=== PATIENT | male | born 1965 | race Caucasian/White ===

== ENCOUNTER 2019-11-21 12:26 | Inpatient (IN) | payer OTHER ==
--- NOTE | 2019-11-21 12:33 | BHS.RME ---
Substance Use & Tx History - Substance Use History Alcohol Substance amount: 5-6 beers Frequency of use: Daily Substance route: Oral Date of Last Use: 11/21/19 Heroin Substance amount: 3 bags Frequency of use: Daily Substance route: Inhalation (ex: sniffing or snorting) Date of Last Use: 11/20/19 Cocaine-Crack Substance amount: 3-4 bags Frequency of use: Daily Substance route: Smoking Date of Last Use: 11/20/19 Nicotine Substance amount: 1 pack Frequency of use: Daily Substance route: Smoking Date of Last Use: 11/21/19 Physical/Psych/Mental Status - Behavior General Behavior: Increased activity (restlessness, agitation) Eye Contact: Normal - Cooperativeness Cooperativeness: Cooperative - Thinking Thought Processes: Tight, Logical, Goal Directed - Physical Health Problems Is patient presently having any pain?: No Does patient presently have any injuries (include location): No Does patient currently have a fever: No Is patient : No CIWA Nausea/Vomitin-No Nausea/No Vomiting Muscle Tremors: 2 Anxiety: 3 Agitation: 3 Paroxysmal Sweats: No Perspiration Orientation: 1-Uncertain about Date Tacttile Disturbances: 0-None Auditory Disturbances: 0-None Visual Disturbances: 0-None Headache: 0-None Present CIWA-Ar Total Score: 9
--- NOTE | 2019-11-21 13:23 | HP ---
CIWA Score Nausea/Vomitin-No Nausea/No Vomiting Muscle Tremors: 2 Anxiety: 3 Agitation: 3 Paroxysmal Sweats: No Perspiration Orientation: 1-Uncertain about Date Tacttile Disturbances: 0-None Auditory Disturbances: 0-None Visual Disturbances: 0-None Headache: 0-None Present CIWA-Ar Total Score: 9 - Admission Criteria OASAS Guidelines: Admission for Medically Managed Detox: Requires at least one of the followin. CIWA greater than 12 2. Seizures within the past 24 hours 3. Delirium tremens within the past 24 hours 4. Hallucinations within the past 24 hours 5. Acute intervention needed for co occurring medical disorder 6. Acute intervention needed for co occurring psychiatric disorder 7. Severe withdrawal that cannot be handled at a lower level of care (continued vomiting, continued diarrhea, abnormal vital signs) requiring intravenous medication and/or fluids 8. Admitting History and Physical - Admission History of Present Illness: Mr. Min Lehman presents today(first visit) at [facility] for detox from Alcohol, heroin and crack. PMH: 2 PINGED NERVES, 3 BULGIND DISC PSH: Rt inguinal hernial repair 22y ago PSYCH: Bipolar, last med a year ago SOCIAL: Rents a room LEGAL: nONE Substance Use & Tx History - Substance Use History Alcohol Substance amount: 5-6 beers Frequency of use: Daily Substance route: Oral Date of Last Use: 11/21/19 First use: Age12. seizure -, blackout -, eye oral and maxillofacial surgery resident + Heroin Substance amount: 3 bags Frequency of use: Daily Substance route: Inhalation (ex: sniffing or snorting) Date of Last Use: 11/20/19 First use: Age 16, OD + , LST TIME HAD NARCAN AT HOME WAS AT AGE 18 Cocaine-Crack Substance amount: 3-4 bags Frequency of use: Daily Substance route: Smoking Date of Last Use: 11/20/19 First use: Age 16 Nicotine Substance amount: 1 pack Frequency of use: Daily Substance route: Smoking Date of Last Use: 11/21/19 First use: 12 meets admission criteria given current level of intoxication. High risk relapse. History Source: Patient Limitations to Obtaining History: No Limitations - Past Medical History Gastrointestinal: Yes: Peptic Ulcer Disease (Patient says he has gastritis and takes Zantac) Psych: Yes: Anxiety, Bipolar (Was previously on psych meds. Last dose was about a year ago), Depression Musculoskeletal: Yes: Chronic low back pain (Has 2 pinched nerves and three bulge disc. Was previously on Procaset) - Past Surgical History Past Surgical History: Yes: Hernia Repair (Rt hernial repair 22y ago. Says he now has Lt. inguinal hernia and needs surgery) - Smoking History Smoking history: Current every day smoker Have you smoked in the past 12 months: Yes Aproximately how many cigarettes per day: 20 - Alcohol/Substance Use Hx Alcohol Use: Yes Admission ROS [facility] - HPI Exam Limitations: No Limitations - Ebola screening Have you traveled outside of the country in the last 21 days: No Have you been sick,other than usual withdrawal symptoms: No Do you have a fever: No - Review of Systems Constitutional: No Symptoms Reported EENT: reports: No Symptoms Reported : reports: No Symptoms Reported Musculoskeletal: reports: Back Pain (Chronic and radiates to Lt ant/medial post thigh) Integumentary: reports: No Symptoms Reported Neuro: reports: No Symptoms reported Endocrine: reports: No Symptoms Reported Hematology: reports: No Symptoms Reported Psychiatric: reports: Anxious Patient History - Smoking Cessation Smoking history: Current every day smoker Have you smoked in the past 12 months: Yes Aproximately how many cigarettes per day: 20 Hx Chewing Tobacco Use: No Initiated information on smoking cessation: Yes 'Breaking Loose' booklet given: 11/21/19 Admission Physical Exam [facility] - Physical General Appearance: Yes: Within Normal Limits, No Apparent Distress, Thin HEENTM: Yes: Within Normal Limits, EOMI, Hearing grossly Normal, Normal ENT Inspection, Normocephalic, Normal Voice, JOLLY Respiratory: Yes: Within Normal Limits, Chest Non-Tender, Lungs Clear, Normal Breath Sounds, No Respiratory Distress, No Accessory Muscle Use Neck: Yes: Within Normal Limits, No masses,lesions,Nodules, Trachea in good position Cardiology: Yes: Within Normal Limits, Regular Rhythm, Regular Rate, Murmur, Other (2 stents placed over 10 yrs ago) Abdominal: Yes: Within Normal Limits, Normal Bowel Sounds, Non Tender, Flat Genitourinary: Yes: Within Normal Limits Back: Yes: Decreased Range of Motion (Has 2 pinched nerves and 3 bulging disc. Walks with a CANE) Musculoskeletal: Yes: Gait Steady, Back pain (WALKS WITH A CANE, 2 PINCHED NERVES AND 3 BULGING DISCS) Extremities: Yes: Within Normal Limits, Normal Capillary Refill, Normal Inspection, Normal Range of Motion, Non-Tender Neurological: Yes: Fully Oriented, Alert Integumentary: Yes: Within Normal Limits, Normal Color - Diagnostic (1) Alcohol dependence with withdrawal, uncomplicated Current Visit: Yes Status: Acute (2) Opioid dependence on agonist therapy Current Visit: Yes Status: Acute (3) Cocaine dependence Current Visit: Yes Status: Acute Qualifiers: Substance use status: uncomplicated Qualified Code(s): F14.20 - Cocaine dependence, uncomplicated (4) Nicotine dependence Current Visit: Yes Status: Acute Qualifiers: Nicotine product type: cigarettes Substance use status: uncomplicated Qualified Code(s): F17.210 - Nicotine dependence, cigarettes, uncomplicated (5) Degenerative lumbar disc Current Visit: Yes Status: Acute (6) Bipolar 1 disorder Current Visit: Yes Status: Chronic Cleared for Admission S - Detox or Rehab [facility] Level of Care: Medically Managed Detox Regimen/Protocol: Librium Screened but not Admitted - Documentation of Visit Screened but not Admitted: Yes Breathalyzer - Breathalyzer Breathalyzer: 0.005 Urine Drug Screen - Results Urine drug screen results: TAYLOR-Cocaine, FEN-Fentanyl, MOP-Opiates, MTD-Methadone Inpatient Rehab Admission - Rehab Decision to Admit Inpatient rehab admission?: No
[2019-11-21] MEDS ORDERED: chlordiazePOXIDE HCL 25 MG CAPSULE PO PRN (14:25)
[2019-11-21] MEDS ORDERED: ONDANSETRON *ODT* 4 MG TABLET SL PRN (14:25)
[2019-11-21] MEDS ORDERED: BISMUTH SUBSALICYLATE 262 MG/15 ML BTL PO PRN (14:25)
[2019-11-21] MEDS ORDERED: METHOCARBAMOL 500 MG TABLET PO PRN (14:25)
[2019-11-21] MEDS ORDERED: ACETAMINOPHEN 325 MG TABLET (FP) PO PRN ×2 (14:25)
[2019-11-21] MEDS ORDERED: MAGNESIUM CITRATE 300 ML BOTTLE PO PRN (14:25)
[2019-11-21] MEDS ORDERED: NICOTINE POLACRILEX 2 MG GUM BUC PRN (14:25)
[2019-11-21] MEDS ORDERED: MAGNESIUM HYDROX 2400MG/30ML ORAL SUSPENSION 30 ML CUP PO PRN (14:25)
[2019-11-21] MEDS ORDERED: MAG HYDROX/AL HYDROX/SIMETH 30 ML UNIT-DOSE CUP PO PRN (14:25)
[2019-11-21] MEDS ORDERED: IBUPROFEN 400 MG TABLET (FP) PO PRN (14:25)
[2019-11-21] MEDS ORDERED: MENTHOL/PHENOL 1 EACH UD MM PRN (14:25)
[2019-11-21 14:52] VITALS: BMI 21.4
[2019-11-21] MEDS ORDERED: hydrOXYzine PAMOATE 25 MG CAPSULE (FP) PO PRN (15:08)
[2019-11-21] MEDS: PRENATAL VITAMINS W/ FOLIC ACID TABLET (FP) PO SCH (15:53)
[2019-11-21] MEDS: NICOTINE 21 MG/24 HOURS TOPICAL PATCH TD SCH (15:53)
--- NOTE | 2019-11-21 15:58 | PN ---
Teaching Attending Note Name of Resident: Zabrina Pugh ATTENDING PHYSICIAN STATEMENT I saw and evaluated the patient. I reviewed the resident's note and discussed the case with the resident. I agree with the resident's findings and plan as documented. SUBJECTIVE: OBJECTIVE: ASSESSMENT AND PLAN:
[2019-11-21 16:52] LABS: HEMATOCRIT 41.4 % (35.4-49); HEMOGLOBIN 13.6 GM/dL (11.7-16.9); MCH 29.3 pg (25.7-33.7); MCHC 32.9 g/dl (32.0-35.9); MEAN CELL VOLUME 89.2 fl (80-96); MEAN PLT VOLUME 9.4 fl (7.5-11.1); PLATELET COUNT 163 K/MM3 (134-434); RBC 4.64 M/mm3 (4.00-5.60); RDW 15.7 % (11.9-15.9); WHITE BLOOD COUNT 5.8 K/mm3 (4.0-10.0)
[2019-11-21 17:03] LABS: ALBUMIN 3.4 g/dl (3.4-5.0); BILIRUBIN,TOTAL 0.2 mg/dL (0.2-1); BLOOD UREA NITROGEN 18.8 mg/dL (7-18); CALCIUM 8.4 mg/dL (8.5-10.1); POTASSIUM 3.9 mmol/L (3.5-5.1); TOT PROT 6.5 g/dl (6.4-8.2)
--- NOTE | 2019-11-21 17:20 | CONSULT ---
[facility] Psychiatric Consult - Data Date of interview: 11/21/19 Admission source: [facility] Identifying data: First visit to [facility] and admission to [address] [place] [address] for this 53 y/o male self-referred for detoxification treatment. JEANIE issues : alcohol, heroin, cocaine, nicotine. Patient is single, a father of three, domiciled (lives alone), unemployed and supported on SSI benefits. Substance Abuse History: Discussed with the patient. JEANIE profile as follows : Substance Use History. Alcohol. Substance amount: 5-6 beers. Frequency of use: Daily. Substance route: Oral. Date of Last Use: 11/21/19. First use: Age12. seizure -, blackout -, eye can top setter +. Heroin. Substance amount: 3 bags. Frequency of use: Daily. Substance route: Inhalation (ex: sniffing or snorting). Date of Last Use: 11/20/19. First use: Age 16, OD + , LST TIME HAD NARCAN AT HOME WAS AT AGE 18. Cocaine-Crack. Substance amount: 3-4 bags. Frequency of use: Daily. Substance route: Smoking. Date of Last Use: 11/20/19. First use: Age 16. Nicotine. Substance amount: 1 pack. Frequency of use: Daily. Substance route: Smoking. Date of Last Use: 11/21/19. First use: 12 Medical History: Medical profile is remarkable for peptic ulcer disease, gastritis, chronic lumbar pain (2 pinched nerves + three bulge discs), antecedent of right inguinal herniorraphy and currently with left inguinal hernia (self-report). Patient uses a cane for ambulation. Psychiatric History: Patient admits to a distant history of psychiatric hospitalizations ([facility] + [facility]). Reportedly diagnosed with Bipolar Disorder. Mr Lehman indicates past treatment with duloxetine + aripriprazole + alprazolam + zolpidem. Not taken " for more than a year." Patient used to get his OPD services at [facility]. Appointments not kept for several months. Patient declares a history of two suicide attempts, more than 20 years ago, via overdose with medications + self- mutilation (wrist-cutting). Physical/Sexual Abuse/Trauma History: Patient denies. Additional Comment: Urine drug screen results: TAYLOR-Cocaine, FEN-Fentanyl, MOP- Opiates, MTD-Methadone. Noted. Mental Status Exam - Mental Status Exam Alert and Oriented to: Time, Place, Person Cognitive Function: Good Patient Appearance: Unkempt, Disheveled Mood: Nervous, Withdrawn, Anxious Affect: Mood Congruent, Constricted Patient Behavior: Fatigued, Appropriate, Cooperative Speech Pattern: Clear, Appropriate Voice Loudness: Normal Thought Process: Intact, Goal Oriented Thought Disorder: Not Present Hallucinations: Denies Suicidal Ideation: Denies Homicidal Ideation: Denies Insight/Judgement: Poor Sleep: Poorly, Difficulty falling asleep Appetite: Good Gait/Station: Other (uses a cane for ambulation) Psychiatric Findings - Problem List ([place] 1, 2,3) (1) Alcohol dependence with withdrawal, uncomplicated Current Visit: Yes Status: Acute (2) Opioid use disorder Current Visit: Yes Status: Chronic (3) Cocaine dependence Current Visit: Yes Status: Chronic Qualifiers: Substance use status: uncomplicated Qualified Code(s): F14.20 - Cocaine dependence, uncomplicated (4) Nicotine dependence Current Visit: Yes Status: Chronic Qualifiers: Nicotine product type: cigarettes Substance use status: uncomplicated Qualified Code(s): F17.210 - Nicotine dependence, cigarettes, uncomplicated (5) Substance induced mood disorder Current Visit: Yes Status: Chronic (6) History of bipolar disorder Current Visit: Yes Status: Chronic (7) Insomnia Current Visit: Yes Status: Chronic (8) Non-compliance Current Visit: Yes Status: Chronic - Initial Treatment Plan Initial Treatment Plan: Psychoeducation. Sleep hygiene. Support. Detoxification initiated. Insomnia is addressed with melatonin at bedtime. Patient has given his informed consent for this plan of care. Observation.
[2019-11-21] MEDS ORDERED: METHADONE HCL 10 MG TABLET (FOR DETOX USE ONLY) PO ONE (17:28)
[2019-11-21] MEDS ORDERED: cloNIDine HCL 0.1 MG TABLET PO PRN (17:28)
[2019-11-21] MEDS ORDERED: hydrOXYzine PAMOATE 25 MG CAPSULE (FP) PO SCH (18:00)
[2019-11-21] MEDS: chlordiazePOXIDE HCL 25 MG CAPSULE PO SCH ×2 (18:08→22:27)
[2019-11-21] MEDS: MELATONIN 5 MG TABLETS PO SCH (22:27)
[2019-11-21] MEDS: THIAMINE HCL 100 MG TABLET (FP) PO SCH (22:27)
[2019-11-22] MEDS: chlordiazePOXIDE HCL 25 MG CAPSULE PO SCH ×4 (05:54→22:47)
[2019-11-22] MEDS ORDERED: METHADONE (DETOX) 20 MG, METHADONE (DETOX) 5 MG PO ONE (10:00)
[2019-11-22] MEDS: METHADONE HCL 40 MG DISPERSABLE TABLET PO SCH (10:29)
[2019-11-22] MEDS: PRENATAL VITAMINS W/ FOLIC ACID TABLET (FP) PO SCH (10:29)
[2019-11-22] MEDS: NICOTINE 21 MG/24 HOURS TOPICAL PATCH TD SCH (10:29)
--- NOTE | 2019-11-22 10:55 | PN ---
S CIWA - CIWA Score Nausea/Vomitin-No Nausea/No Vomiting Muscle Tremors: 2 Anxiety: 2 Agitation: 2 Paroxysmal Sweats: 2 Orientation: 0-Oriented Tacttile Disturbances: 0-None Auditory Disturbances: 0-None Visual Disturbances: 0-None Headache: 0-None Present CIWA-Ar Total Score: 8 BHS Progress Note (SOAP) Subjective: sweats mild shakes interrupted sleep body aches Objective: 11/22/19 10:54 Vital Signs Temperature 97.3 F L 11/22/19 08:45 Pulse Rate 54 L 11/22/19 08:45 Respiratory Rate 16 11/22/19 08:45 Blood Pressure 116/70 11/22/19 08:45 O2 Sat by Pulse Oximetry (%) 98 11/22/19 05:21 Laboratory Tests 11/21/19 11/21/19 11/21/19 14:15 14:15 14:15 WBC 5.8 RBC 4.64 Hgb 13.6 Hct 41.4 MCV 89.2 MCH 29.3 MCHC 32.9 RDW 15.7 Plt Count 163 MPV 9.4 Sodium 142 Potassium 3.9 Chloride 108 H Carbon Dioxide 28 Anion Gap 5 L BUN 18.8 H Creatinine 1.0 Est GFR (CKD-EPI)AfAm 99.15 Est GFR (CKD-EPI)NonAf 85.55 Random Glucose 129 H Calcium 8.4 L Total Bilirubin 0.2 AST 17 ALT 22 Alkaline Phosphatase 60 Total Protein 6.5 Albumin 3.4 Syphilis Serology Non-reactive labs noted aaox3 lying in bed no acute distress Assessment: 11/22/19 10:54 withdrawals Plan: continue detox increase fluids
[2019-11-22] MEDS: THIAMINE HCL 100 MG TABLET (FP) PO SCH (22:47)
[2019-11-22] MEDS: MELATONIN 5 MG TABLETS PO SCH (23:29)
[2019-11-23] MEDS: METHADONE HCL 40 MG DISPERSABLE TABLET PO SCH (05:33)
[2019-11-23] MEDS: chlordiazePOXIDE HCL 25 MG CAPSULE PO SCH ×4 (05:33→22:02)
[2019-11-23] MEDS ORDERED: ACETAMINOPHEN 325 MG TABLET (FP) PO PRN (09:00)
--- NOTE | 2019-11-23 09:06 | PN ---
S CIWA - CIWA Score Nausea/Vomitin-No Nausea/No Vomiting Muscle Tremors: 2 Anxiety: 1-Mildly Anxious Agitation: 2 Paroxysmal Sweats: 1-Minimal Palms Moist Orientation: 0-Oriented Tacttile Disturbances: 0-None Auditory Disturbances: 0-None Visual Disturbances: 0-None Headache: 0-None Present CIWA-Ar Total Score: 6 BHS Progress Note (SOAP) Subjective: chronic lower back pain sweats interrupted sleep body aches Objective: 11/23/19 09:06 Vital Signs Temperature 97.5 F L 11/23/19 05:23 Pulse Rate 55 L 11/23/19 05:23 Respiratory Rate 16 11/23/19 05:23 Blood Pressure 106/65 11/23/19 05:23 O2 Sat by Pulse Oximetry (%) 98 11/23/19 05:23 Laboratory Tests 11/21/19 11/21/19 11/21/19 14:15 14:15 14:15 WBC 5.8 RBC 4.64 Hgb 13.6 Hct 41.4 MCV 89.2 MCH 29.3 MCHC 32.9 RDW 15.7 Plt Count 163 MPV 9.4 Sodium 142 Potassium 3.9 Chloride 108 H Carbon Dioxide 28 Anion Gap 5 L BUN 18.8 H Creatinine 1.0 Est GFR (CKD-EPI)AfAm 99.15 Est GFR (CKD-EPI)NonAf 85.55 Random Glucose 129 H Calcium 8.4 L Total Bilirubin 0.2 AST 17 ALT 22 Alkaline Phosphatase 60 Total Protein 6.5 Albumin 3.4 Syphilis Serology Non-reactive repeated labs pending aaox3 ambulating well with cane no acute distress Assessment: 11/23/19 09:07 withdrawals Plan: continue detox increase fluids lidocaine patch tylenol 1000mg q6hr for pain prn roboxin prn
[2019-11-23] MEDS ORDERED: METHADONE HCL 10 MG TABLET (FOR DETOX USE ONLY) PO ONE (10:00)
[2019-11-23] MEDS: LIDOCAINE 5% TOPICAL PATCH TP SCH (10:30)
[2019-11-23] MEDS: NICOTINE 21 MG/24 HOURS TOPICAL PATCH TD SCH (10:30)
[2019-11-23] MEDS: PRENATAL VITAMINS W/ FOLIC ACID TABLET (FP) PO SCH (10:31)
[2019-11-23] MEDS: ACETAMINOPHEN 500 MG TABLET (FP) PO PRN (11:20)
[2019-11-23 11:39] LABS: BLOOD UREA NITROGEN 19.8 mg/dL (7-18); CALCIUM 8.3 mg/dL (8.5-10.1)
[2019-11-23 11:40] LABS: ALBUMIN 2.9 g/dl (3.4-5.0); BILIRUBIN,TOTAL 0.4 mg/dL (0.2-1); CREATININE 0.8 mg/dL (0.55-1.3); TOT PROT 5.6 g/dl (6.4-8.2)
[2019-11-23] MEDS: THIAMINE HCL 100 MG TABLET (FP) PO SCH (22:02)
[2019-11-23] MEDS: LIDOCAINE PATCH REMOVAL MC SCH (22:02)
[2019-11-23] MEDS: MELATONIN 5 MG TABLETS PO SCH (22:02)
[2019-11-24] MEDS ORDERED: chlordiazePOXIDE HCL 10 MG CAPSULE PO PRN
[2019-11-24] MEDS: chlordiazePOXIDE HCL 10 MG CAPSULE PO SCH ×4 (05:27→22:31)
[2019-11-24] MEDS: METHADONE HCL 40 MG DISPERSABLE TABLET PO SCH (05:27)
[2019-11-24] MEDS ORDERED: METHADONE (DETOX) 10 MG, METHADONE (DETOX) 5 MG PO ONE (10:00)
[2019-11-24] MEDS: PRENATAL VITAMINS W/ FOLIC ACID TABLET (FP) PO SCH (10:32)
[2019-11-24] MEDS: NICOTINE 21 MG/24 HOURS TOPICAL PATCH TD SCH (10:32)
[2019-11-24] MEDS: LIDOCAINE 5% TOPICAL PATCH TP SCH (10:32)
--- NOTE | 2019-11-24 13:30 | PN ---
[facility] CIWA - CIWA Score Nausea/Vomitin-No Nausea/No Vomiting Muscle Tremors: 2 Anxiety: 2 Agitation: 1-Slight > Activity Paroxysmal Sweats: 2 Orientation: 0-Oriented Tacttile Disturbances: 0-None Auditory Disturbances: 0-None Visual Disturbances: 0-None Headache: 0-None Present CIWA-Ar Total Score: 7 BHS Progress Note (SOAP) Subjective: Complaints of anxiety,tremors, sweats and mild agitation. Objective: 11/24/19 13:28 Vital Signs 11/24/19 11/24/19 08:50 13:05 Temperature 97.3 F L 97.3 F L Pulse Rate 55 L 59 L Respiratory 16 18 Rate Blood Pressure 113/72 102/69 O2 Sat by Pulse 99 Oximetry (%) Laboratory Last Values WBC 5.8 K/mm3 (4.0-10.0) 11/21/19 14:15 RBC 4.64 M/mm3 (4.00-5.60) 11/21/19 14:15 Hgb 13.6 GM/dL (11.7-16.9) 11/21/19 14:15 Hct 41.4 % (35.4-49) 11/21/19 14:15 MCV 89.2 fl (80-96) 11/21/19 14:15 MCH 29.3 pg (25.7-33.7) 11/21/19 14:15 MCHC 32.9 g/dl (32.0-35.9) 11/21/19 14:15 RDW 15.7 % (11.9-15.9) 11/21/19 14:15 Plt Count 163 K/MM3 (134-434) 11/21/19 14:15 MPV 9.4 fl (7.5-11.1) 11/21/19 14:15 Sodium 144 mmol/L (136-145) 11/23/19 07:05 Potassium 4.0 mmol/L (3.5-5.1) 11/23/19 07:05 Chloride 111 mmol/L (98-107) H 11/23/19 07:05 Carbon Dioxide 29 mmol/L (21-32) 11/23/19 07:05 Anion Gap 3 MMOL/L (8-16) L 11/23/19 07:05 BUN 19.8 mg/dL (7-18) H 11/23/19 07:05 Creatinine 0.8 mg/dL (0.55-1.3) 11/23/19 07:05 Est GFR (CKD-EPI)AfAm 118.20 11/23/19 07:05 Est GFR (CKD-EPI)NonAf 101.99 11/23/19 07:05 Random Glucose 78 mg/dL (74-106) 11/23/19 07:05 Calcium 8.3 mg/dL (8.5-10.1) L 11/23/19 07:05 Total Bilirubin 0.4 mg/dL (0.2-1) 11/23/19 07:05 AST 12 U/L (15-37) L 11/23/19 07:05 ALT 18 U/L (13-61) 11/23/19 07:05 Alkaline Phosphatase 52 U/L (45-117) 11/23/19 07:05 Total Protein 5.6 g/dl (6.4-8.2) L 11/23/19 07:05 Albumin 2.9 g/dl (3.4-5.0) L 11/23/19 07:05 Syphilis Serology Non-reactive (NONREACTIVE) 11/21/19 14:15 COVID-19 (JAYLENE) Not detected (Not Detected) 11/21/19 08:50 Labs noted. Assessment: 11/24/19 13:29 Alert and oriented x3, in no acute respiratory distress. Full ROM, ambulatory on unit. Withdrawal symptoms. Plan: Continue detox protocol.
[2019-11-24] MEDS ORDERED: MASKS NR ONE (18:12)
[2019-11-24] MEDS: MELATONIN 5 MG TABLETS PO SCH (22:31)
[2019-11-24] MEDS: THIAMINE HCL 100 MG TABLET (FP) PO SCH (22:31)
[2019-11-24] MEDS: LIDOCAINE PATCH REMOVAL MC SCH (22:31)
[2019-11-25] MEDS: METHADONE HCL 40 MG DISPERSABLE TABLET PO SCH (05:36)
[2019-11-25] MEDS: chlordiazePOXIDE HCL 10 MG CAPSULE PO SCH ×2 (05:36→20:08)
[2019-11-25] MEDS ORDERED: METHADONE HCL 10 MG TABLET (FOR DETOX USE ONLY) PO ONE (10:00)
[2019-11-25] MEDS: NICOTINE 21 MG/24 HOURS TOPICAL PATCH TD SCH (10:39)
[2019-11-25] MEDS: LIDOCAINE 5% TOPICAL PATCH TP SCH (10:39)
[2019-11-25] MEDS: PRENATAL VITAMINS W/ FOLIC ACID TABLET (FP) PO SCH (10:39)
--- NOTE | 2019-11-25 15:09 | PN ---
[facility] CIWA - CIWA Score Nausea/Vomitin-No Nausea/No Vomiting Muscle Tremors: None Anxiety: 2 Agitation: 2 Paroxysmal Sweats: No Perspiration Orientation: 0-Oriented Tacttile Disturbances: 0-None Auditory Disturbances: 0-None Visual Disturbances: 0-None Headache: 0-None Present CIWA-Ar Total Score: 4 BHS Progress Note (SOAP) Subjective: Feels ok Objective: 11/25/19 15:03 Last Vital Signs Temp Pulse Resp BP Pulse Ox 97.4 F L 69 20 113/62 98 11/25/19 12:51 11/25/19 12:51 11/25/19 12:51 11/25/19 12:51 11/25/19 12:51 Laboratory Tests 11/21/19 11/21/19 11/21/19 08:50 14:15 14:15 WBC 5.8 RBC 4.64 Hgb 13.6 Hct 41.4 MCV 89.2 MCH 29.3 MCHC 32.9 RDW 15.7 Plt Count 163 MPV 9.4 Sodium 142 Potassium 3.9 Chloride 108 H Carbon Dioxide 28 Anion Gap 5 L BUN 18.8 H Creatinine 1.0 Est GFR (CKD-EPI)AfAm 99.15 Est GFR (CKD-EPI)NonAf 85.55 Random Glucose 129 H Calcium 8.4 L Total Bilirubin 0.2 AST 17 ALT 22 Alkaline Phosphatase 60 Total Protein 6.5 Albumin 3.4 Syphilis Serology COVID-19 (JAYLENE) Not detected 11/21/19 11/23/19 14:15 07:05 WBC RBC Hgb Hct MCV MCH MCHC RDW Plt Count MPV Sodium 144 Potassium 4.0 Chloride 111 H Carbon Dioxide 29 Anion Gap 3 L BUN 19.8 H Creatinine 0.8 Est GFR (CKD-EPI)AfAm 118.20 Est GFR (CKD-EPI)NonAf 101.99 Random Glucose 78 Calcium 8.3 L Total Bilirubin 0.4 AST 12 L ALT 18 Alkaline Phosphatase 52 Total Protein 5.6 L Albumin 2.9 L Syphilis Serology Non-reactive COVID-19 (JAYLENE) Labs reviewed: Assessment: 11/25/19 15:06 Withdrawal sxs Noted with hypoalbuminemia and low total protein (previously normal); azotemia and hypocalcemia (mild) Plan: Continue detox Encouraged PO water intake Hypoalbuminemia and low total protein (previously normal): encouraged diet, start ensure 1 cup PO TID Azotemia: encouraged PO water intake Hypocalcemia (mild): start calcium carbonate 650 mg bid
[2019-11-25] MEDS: ACETAMINOPHEN 500 MG TABLET (FP) PO PRN (22:26)
[2019-11-25 22:52] VITALS: TEMP 97.5
[2019-11-25] MEDS: MELATONIN 5 MG TABLETS PO SCH (23:22)
[2019-11-25] MEDS: CALCIUM CARBONATE 650 MG TABLET PO SCH (23:23)
[2019-11-25] MEDS: LIDOCAINE PATCH REMOVAL MC SCH (23:23)
[2019-11-25] MEDS: THIAMINE HCL 100 MG TABLET (FP) PO SCH (23:23)
[2019-11-26] MEDS ORDERED: chlordiazePOXIDE HCL 10 MG CAPSULE PO ONE (05:00)
[2019-11-26] MEDS: ACETAMINOPHEN 500 MG TABLET (FP) PO PRN (05:36)
[2019-11-26] MEDS: METHADONE HCL 40 MG DISPERSABLE TABLET PO SCH (05:37)
[2019-11-26] MEDS ORDERED: METHADONE HCL 5 MG TABLET (FOR DETOX USE ONLY) PO ONE (06:00)
--- NOTE | 2019-11-26 08:43 | DS ---
[facility] Detox Discharge Summary Admission Date: 11/21/19 Discharge Date: 11/26/19 - History Present History: Alcohol Dependence, Cocaine Dependence, Opioid Dependence - Physical Exam Results Vital Signs: Vital Signs Temperature 97.5 F L 11/26/19 05:46 Pulse Rate 65 11/26/19 05:46 Respiratory Rate 18 11/26/19 05:46 Blood Pressure 115/68 11/26/19 05:46 O2 Sat by Pulse Oximetry (%) 97 11/26/19 05:46 Pertinent Admission Physical Exam Findings: Vital Signs Temperature 97.5 F L 11/26/19 05:46 Pulse Rate 65 11/26/19 05:46 Respiratory Rate 18 11/26/19 05:46 Blood Pressure 115/68 11/26/19 05:46 O2 Sat by Pulse Oximetry (%) 97 11/26/19 05:46 Laboratory Tests 11/21/19 11/21/19 11/21/19 08:50 14:15 14:15 WBC 5.8 RBC 4.64 Hgb 13.6 Hct 41.4 MCV 89.2 MCH 29.3 MCHC 32.9 RDW 15.7 Plt Count 163 MPV 9.4 Sodium 142 Potassium 3.9 Chloride 108 H Carbon Dioxide 28 Anion Gap 5 L BUN 18.8 H Creatinine 1.0 Est GFR (CKD-EPI)AfAm 99.15 Est GFR (CKD-EPI)NonAf 85.55 Random Glucose 129 H Calcium 8.4 L Total Bilirubin 0.2 AST 17 ALT 22 Alkaline Phosphatase 60 Total Protein 6.5 Albumin 3.4 Syphilis Serology COVID-19 (JAYLENE) Not detected 11/21/19 11/23/19 14:15 07:05 WBC RBC Hgb Hct MCV MCH MCHC RDW Plt Count MPV Sodium 144 Potassium 4.0 Chloride 111 H Carbon Dioxide 29 Anion Gap 3 L BUN 19.8 H Creatinine 0.8 Est GFR (CKD-EPI)AfAm 118.20 Est GFR (CKD-EPI)NonAf 101.99 Random Glucose 78 Calcium 8.3 L Total Bilirubin 0.4 AST 12 L ALT 18 Alkaline Phosphatase 52 Total Protein 5.6 L Albumin 2.9 L Syphilis Serology Non-reactive COVID-19 (JAYLENE) aaox3 ambulating no acute distress lungs CTA - Treatment Hospital Course: Detox Protocol Followed, Detoxed Safely, Responded well, Discharged Condition Good, Rehab Referral Accepted - Medication Discharge Medications: Ambulatory Orders Methadone [Dolophine -] 40 mg PO DAILY 11/21/19 - Diagnosis (1) Alcohol dependence with withdrawal, uncomplicated Current Visit: Yes Status: Chronic (2) Degenerative lumbar disc Current Visit: Yes Status: Chronic (3) Opioid dependence on agonist therapy Current Visit: Yes Status: Acute (4) Bipolar 1 disorder Current Visit: Yes Status: Chronic (5) Cocaine dependence Current Visit: Yes Status: Chronic Qualifiers: Substance use status: uncomplicated Qualified Code(s): F14.20 - Cocaine dependence, uncomplicated (6) History of bipolar disorder Current Visit: Yes Status: Chronic (7) Insomnia Current Visit: Yes Status: Chronic (8) Nicotine dependence Current Visit: Yes Status: Chronic Qualifiers: Nicotine product type: cigarettes Substance use status: uncomplicated Qualified Code(s): F17.210 - Nicotine dependence, cigarettes, uncomplicated (9) Non-compliance Current Visit: Yes Status: Chronic (10) Opioid use disorder Current Visit: Yes Status: Chronic (11) Substance induced mood disorder Current Visit: Yes Status: Chronic - AMA Did Patient Leave Against Medical Advice: No
[2019-11-26 09:26] VITALS: BP 111/60; PULSE 64
[2019-11-26] MEDS: CALCIUM CARBONATE 650 MG TABLET PO SCH (10:05)
[2019-11-26] MEDS: PRENATAL VITAMINS W/ FOLIC ACID TABLET (FP) PO SCH (10:05)
[2019-11-26] MEDS: LIDOCAINE 5% TOPICAL PATCH TP SCH (10:06)
[2019-11-26] MEDS: NICOTINE 21 MG/24 HOURS TOPICAL PATCH TD SCH (10:07)
== END 2019-11-26 10:30 | disposition home or self-care (01) | DRG 773 ==
LOC: YASAS 12:26 → Y6N 15:02
PROVIDERS: ADMIT Allergy & Immunology; ATTEND Allergy & Immunology
PROC: HZ2ZZZZ Detoxification Services for Substance Abuse Treatment (ICD-10-PCS; principal; 2019-11-21)
DX: F10.230 Alcohol dependence with withdrawal, uncomplicated (principal); F11.20 Opioid dependence, uncomplicated; F14.20 Cocaine dependence, uncomplicated; F31.89 Other bipolar disorder; F17.210 Nicotine dependence, cigarettes, uncomplicated; F19.24 Other psychoactive substance dependence with psychoactive substance-induced mood disorder; F41.8 Other specified anxiety disorders; E83.51 Hypocalcemia; E88.09 Other disorders of plasma-protein metabolism, not elsewhere classified; M51.36 Other intervertebral disc degeneration, lumbar region; M54.5 Low back pain; G89.29 Other chronic pain; R79.89 Other specified abnormal findings of blood chemistry; K29.70 Gastritis, unspecified, without bleeding; K40.90 Unilateral inguinal hernia, without obstruction or gangrene, not specified as recurrent; Z87.11 Personal history of peptic ulcer disease; Z68.21 Body mass index [BMI] 21.0-21.9, adult; Z98.890 Other specified postprocedural states; Z91.5 Personal history of self-harm
CPT/HCPCS: 36415; 71046-TC-FY; 80053; 85027; 86780; U0003

== ENCOUNTER 2022-01-22 11:30 | Inpatient (IN) | payer OTHER ==
[2022-01-22 12:26] VITALS: BMI 19.3
[2022-01-22] MEDS ORDERED: BENZOCAINE/MENTHOL (CHLORASEPTIC ) LOZENGE MM PRN (17:41)
[2022-01-22] MEDS ORDERED: NICOTINE POLACRILEX 4 MG GUM BUC PRN (17:41)
[2022-01-22] MEDS ORDERED: NALOXONE HCL (KLOXXADO) 8 MG SPRAY NS PRN (17:41)
[2022-01-22] MEDS ORDERED: NICOTINE 10 MG CARTRIDGE (INHALER) IH PRN (17:41)
[2022-01-22] MEDS ORDERED: ACETAMINOPHEN 325 MG TABLET (FP) PO PRN ×2 (17:41)
[2022-01-22] MEDS ORDERED: MAG HYDROX/AL HYDROX/SIMETH 30 ML UNIT-DOSE CUP PO PRN (17:41)
[2022-01-22] MEDS ORDERED: IBUPROFEN 400 MG TABLET (FP) PO PRN (17:41)
[2022-01-22] MEDS ORDERED: BISMUTH SUBSALICYLATE 524 MG/30 ML PO PRN (17:41)
[2022-01-22] MEDS ORDERED: ONDANSETRON *ODT* 4 MG TABLET SL PRN (17:41)
[2022-01-22] MEDS ORDERED: MAGNESIUM CITRATE 300 ML BOTTLE PO PRN (17:41)
[2022-01-22] MEDS ORDERED: LOPERAMIDE HCL 2 MG CAPSULE PO PRN (17:41)
[2022-01-22] MEDS ORDERED: DICYCLOMINE HCL 10 MG CAPSULE PO PRN (17:41)
[2022-01-22] MEDS ORDERED: MAGNESIUM HYDROX 2400MG/30ML ORAL SUSPENSION 30 ML CUP PO PRN (17:41)
[2022-01-22] MEDS: NICOTINE 21 MG/24 HOURS TOPICAL PATCH TD SCH (18:07)
[2022-01-22] MEDS: hydrOXYzine PAMOATE 25 MG CAPSULE (FP) PO SCH ×2 (18:07→22:44)
[2022-01-22] MEDS: THIAMINE HCL 100 MG TABLET (FP) PO SCH (22:44)
[2022-01-22] MEDS: MELATONIN 5 MG TABLETS PO SCH (22:44)
[2022-01-22] MEDS: METHOCARBAMOL 500 MG TABLET PO PRN (22:44)
[2022-01-23] MEDS: hydrOXYzine PAMOATE 25 MG CAPSULE (FP) PO SCH ×6 (05:45→22:31)
[2022-01-23] MEDS: METHOCARBAMOL 500 MG TABLET PO PRN (10:30)
[2022-01-23] MEDS: PRENATAL VITAMINS W/ FOLIC ACID TABLET (FP) PO SCH (10:30)
[2022-01-23] MEDS: NICOTINE 21 MG/24 HOURS TOPICAL PATCH TD SCH (10:30)
[2022-01-23 11:36] LABS: HEMATOCRIT 40.9 % (35.4-49); HEMOGLOBIN 13.5 GM/dL (11.7-16.9); MCH 28.3 pg (25.7-33.7); MCHC 32.9 g/dl (32.0-35.9); MEAN PLT VOLUME 8.6 fl (7.5-11.1); PLATELET COUNT 157 10^3/uL (134-434); RBC 4.76 M/mm3 (4.00-5.60); RDW 15.5 % (11.9-15.9); WHITE BLOOD COUNT 5.1 K/mm3 (4.0-10.0)
[2022-01-23 11:48] LABS: CREATININE 0.8 mg/dL (0.55-1.3)
[2022-01-23 11:49] LABS: BILIRUBIN,TOTAL 0.3 mg/dL (0.2-1); TOT PROT 6.2 g/dl (6.4-8.2)
[2022-01-23 11:51] LABS: ALBUMIN 3.2 g/dl (3.4-5.0)
[2022-01-23 11:53] LABS: BLOOD UREA NITROGEN 19.2 mg/dL (7-18); CALCIUM 8.6 mg/dL (8.5-10.1)
[2022-01-23 12:37] LABS: HIV INTERPRETATION NEGATIVE (NEGATIVE)
[2022-01-23] MEDS ORDERED: risperiDONE 1 MG TABLET PO SCH (22:00)
[2022-01-23] MEDS: THIAMINE HCL 100 MG TABLET (FP) PO SCH (22:31)
[2022-01-23] MEDS: MELATONIN 5 MG TABLETS PO SCH (22:45)
[2022-01-24] MEDS: hydrOXYzine PAMOATE 25 MG CAPSULE (FP) PO SCH ×5 (05:49→22:32)
[2022-01-24] MEDS ORDERED: methaDONE HCL 40 MG DISPERSABLE TABLET PO ONE (09:20)
[2022-01-24] MEDS: NICOTINE 21 MG/24 HOURS TOPICAL PATCH TD SCH (10:43)
[2022-01-24] MEDS: PRENATAL VITAMINS W/ FOLIC ACID TABLET (FP) PO SCH (10:43)
[2022-01-24] MEDS: THIAMINE HCL 100 MG TABLET (FP) PO SCH (22:32)
[2022-01-24] MEDS: MELATONIN 5 MG TABLETS PO SCH (22:32)
[2022-01-25] MEDS: hydrOXYzine PAMOATE 25 MG CAPSULE (FP) PO SCH ×5 (05:34→22:23)
[2022-01-25] MEDS ORDERED: cloNIDine HCL 0.1 MG TABLET PO PRN (09:54)
[2022-01-25] MEDS ORDERED: methaDONE HCL 10 MG TABLET (FOR DETOX USE ONLY) PO ONE (10:00)
[2022-01-25] MEDS: METHOCARBAMOL 500 MG TABLET PO PRN (10:28)
[2022-01-25] MEDS: PRENATAL VITAMINS W/ FOLIC ACID TABLET (FP) PO SCH (10:30)
[2022-01-25] MEDS: NICOTINE 21 MG/24 HOURS TOPICAL PATCH TD SCH (10:30)
[2022-01-25] MEDS: MELATONIN 5 MG TABLETS PO SCH (22:23)
[2022-01-25] MEDS: THIAMINE HCL 100 MG TABLET (FP) PO SCH (22:23)
[2022-01-26] MEDS: hydrOXYzine PAMOATE 25 MG CAPSULE (FP) PO SCH ×5 (06:43→23:43)
[2022-01-26] MEDS: METHOCARBAMOL 500 MG TABLET PO PRN (10:40)
[2022-01-26] MEDS: PRENATAL VITAMINS W/ FOLIC ACID TABLET (FP) PO SCH (10:40)
[2022-01-26] MEDS: NICOTINE 21 MG/24 HOURS TOPICAL PATCH TD SCH (10:40)
[2022-01-26] MEDS: MELATONIN 5 MG TABLETS PO SCH (23:42)
[2022-01-26] MEDS: THIAMINE HCL 100 MG TABLET (FP) PO SCH (23:43)
[2022-01-27] MEDS: hydrOXYzine PAMOATE 25 MG CAPSULE (FP) PO SCH ×5 (06:06→22:37)
[2022-01-27] MEDS ORDERED: methaDONE HCL 10 MG TABLET (FOR DETOX USE ONLY) PO ONE (10:00)
[2022-01-27] MEDS: METHOCARBAMOL 500 MG TABLET PO PRN (10:28)
[2022-01-27] MEDS: IBUPROFEN 600 MG TABLET (FP) PO PRN (10:29)
[2022-01-27] MEDS: NICOTINE 21 MG/24 HOURS TOPICAL PATCH TD SCH (10:29)
[2022-01-27] MEDS: PRENATAL VITAMINS W/ FOLIC ACID TABLET (FP) PO SCH (10:29)
[2022-01-27] MEDS: VITAMINS A AND D TOPICAL OINTMENT 60 GM TUBE TP SCH ×2 (13:26→22:37)
[2022-01-27] MEDS: MELATONIN 5 MG TABLETS PO SCH (22:37)
[2022-01-27] MEDS: THIAMINE HCL 100 MG TABLET (FP) PO SCH (22:37)
[2022-01-28] MEDS: VITAMINS A AND D TOPICAL OINTMENT 60 GM TUBE TP SCH ×4 (01:31→18:38)
[2022-01-28] MEDS: hydrOXYzine PAMOATE 25 MG CAPSULE (FP) PO SCH ×3 (05:50→13:26)
[2022-01-28] MEDS: PRENATAL VITAMINS W/ FOLIC ACID TABLET (FP) PO SCH (10:17)
[2022-01-28] MEDS: NICOTINE 21 MG/24 HOURS TOPICAL PATCH TD SCH (10:17)
[2022-01-28] MEDS: IBUPROFEN 600 MG TABLET (FP) PO PRN (13:27)
[2022-01-28] MEDS: METHOCARBAMOL 500 MG TABLET PO PRN (13:27)
[2022-01-28] MEDS: MELATONIN 5 MG TABLETS PO SCH (22:46)
[2022-01-28] MEDS: THIAMINE HCL 100 MG TABLET (FP) PO SCH (22:46)
[2022-01-28] MEDS ORDERED: ASPIRIN COATED 81 MG TABLET.EC PO ONE (23:45)
[2022-01-29] MEDS: VITAMINS A AND D TOPICAL OINTMENT 60 GM TUBE TP SCH ×5 (00:34→23:14)
[2022-01-29] MEDS ORDERED: methaDONE HCL 10 MG TABLET (FOR DETOX USE ONLY) PO ONE (10:00)
[2022-01-29] MEDS: PRENATAL VITAMINS W/ FOLIC ACID TABLET (FP) PO SCH (10:03)
[2022-01-29] MEDS: ASPIRIN COATED 81 MG TABLET.EC PO SCH (10:03)
[2022-01-29] MEDS: NICOTINE 21 MG/24 HOURS TOPICAL PATCH TD SCH (10:04)
[2022-01-29] MEDS: IBUPROFEN 600 MG TABLET (FP) PO PRN ×2 (10:06→20:08)
[2022-01-29] MEDS: THIAMINE HCL 100 MG TABLET (FP) PO SCH (21:35)
[2022-01-29] MEDS: MELATONIN 5 MG TABLETS PO SCH (21:35)
[2022-01-30] MEDS: VITAMINS A AND D TOPICAL OINTMENT 60 GM TUBE TP SCH (05:33)
[2022-01-30 09:29] VITALS: BP 103/58; PULSE 68; RESP 18; TEMP 98
[2022-01-30] MEDS: NICOTINE 21 MG/24 HOURS TOPICAL PATCH TD SCH (10:02)
[2022-01-30] MEDS: PRENATAL VITAMINS W/ FOLIC ACID TABLET (FP) PO SCH (10:02)
[2022-01-30] MEDS: ASPIRIN COATED 81 MG TABLET.EC PO SCH (10:02)
== END 2022-01-30 10:50 | disposition other institution (70) | DRG 773 ==
LOC: YASAS 11:30 → Y6N 17:32 → UNDOADMIN 17:32
PROVIDERS: ADMIT Allergy & Immunology; ATTEND Surgery
PROC: HZ2ZZZZ Detoxification Services for Substance Abuse Treatment (ICD-10-PCS; principal; 2022-01-22)
DX: F11.23 Opioid dependence with withdrawal (principal); F14.20 Cocaine dependence, uncomplicated; F17.210 Nicotine dependence, cigarettes, uncomplicated; F31.9 Bipolar disorder, unspecified; F19.24 Other psychoactive substance dependence with psychoactive substance-induced mood disorder; I25.10 Atherosclerotic heart disease of native coronary artery without angina pectoris; I25.2 Old myocardial infarction; Z95.5 Presence of coronary angioplasty implant and graft; Z87.11 Personal history of peptic ulcer disease; Z86.19 Personal history of other infectious and parasitic diseases; Z88.0 Allergy status to penicillin; Z88.8 Allergy status to other drugs, medicaments and biological substances; Z91.013 Allergy to seafood
CPT/HCPCS: 36415; 71046-TC-FY; 80053; 85027; 86593; 86780; 87389; 87811; 93005; 93010; C9803-CS; U0003; U0005

== ENCOUNTER 2023-03-11 13:04 | Emergency (ER) | payer OTHER ==
[2023-03-11 13:23] VITALS: PULSE 55; TEMP 98.6; BMI 20.1
[2023-03-11 13:26] VITALS: BP 99/66; RESP 16
== END 2023-03-11 17:37 | disposition home or self-care (01) ==
LOC: JER 13:04
DX: T40.1X1A Poisoning by heroin, accidental (unintentional), initial encounter (principal); R46.4 Slowness and poor responsiveness; R01.1 Cardiac murmur, unspecified
CPT/HCPCS: 93005; 93010; 99283-25

== ENCOUNTER 2023-03-11 18:42 | Inpatient (IN) | payer OTHER ==
[2023-03-11] MEDS ORDERED: POLYETHYLENE GLYCOL (HEALTHYLAX) 3350 17 GM PACKET PO PRN (21:07)
[2023-03-11] MEDS ORDERED: NICOTINE POLACRILEX 2 MG GUM BUC PRN (21:07)
[2023-03-11] MEDS ORDERED: IBUPROFEN 600 MG TABLET (FP) PO PRN (21:07)
[2023-03-11] MEDS ORDERED: NALOXONE HCL (KLOXXADO) 8 MG SPRAY NS PRN (21:07)
[2023-03-11] MEDS ORDERED: IBUPROFEN 400 MG TABLET (FP) PO PRN (21:07)
[2023-03-11] MEDS ORDERED: ACETAMINOPHEN 325 MG TABLET (FP) PO PRN (21:07)
[2023-03-11] MEDS ORDERED: BENZONATATE 200 MG CAPSULE PO PRN (21:07)
[2023-03-11] MEDS ORDERED: BENZOCAINE/MENTHOL (CHLORASEPTIC ) LOZENGE MM PRN (21:07)
[2023-03-11] MEDS ORDERED: guaiFENesin 600 MG TABLET.ER (FP) PO PRN (21:07)
[2023-03-11] MEDS ORDERED: METHOCARBAMOL 500 MG TABLET PO PRN (21:07)
[2023-03-11] MEDS ORDERED: DICYCLOMINE HCL 10 MG CAPSULE PO PRN (21:07)
[2023-03-11] MEDS ORDERED: MAGNESIUM HYDROX 2400MG/30ML ORAL SUSPENSION 30 ML CUP PO PRN (21:07)
[2023-03-11] MEDS ORDERED: BISMUTH SUBSALICYLATE 524 MG/30 ML PO PRN (21:07)
[2023-03-11] MEDS ORDERED: LOPERAMIDE HCL 2 MG CAPSULE PO PRN (21:07)
[2023-03-11] MEDS ORDERED: NALOXONE HCL 0.4 MG/ML VIAL IM PRN (21:07)
[2023-03-11] MEDS ORDERED: MAG HYDROX/AL HYDROX/SIMETH 30 ML UNIT-DOSE CUP PO PRN (21:07)
[2023-03-11] MEDS ORDERED: ONDANSETRON *ODT* 4 MG TABLET SL PRN (21:07)
[2023-03-11] MEDS ORDERED: hydrOXYzine PAMOATE 25 MG CAPSULE (FP) PO PRN (21:07)
[2023-03-11] MEDS ORDERED: THIAMINE HCL 100 MG TABLET (FP) PO SCH (22:00)
[2023-03-11] MEDS ORDERED: MELATONIN 5 MG TABLETS PO SCH (22:00)
[2023-03-11] MEDS ORDERED: MELATONIN 5 MG TABLETS ONE (22:47)
[2023-03-12] MEDS ORDERED: NICOTINE 14 MG/24 HOURS TOPICAL PATCH TD SCH (10:00)
[2023-03-12] MEDS ORDERED: PRENATAL VITAMINS W/ FOLIC ACID TABLET (FP) PO SCH (10:00)
[2023-03-12 11:35] LABS: CHLORIDE 113 mmol/L (98-107); POTASSIUM 4.3 mmol/L (3.5-5.1); SODIUM 143 mmol/L (136-145)
[2023-03-12 11:38] LABS: CALCIUM 8.3 mg/dL (8.5-10.1)
[2023-03-12 11:39] LABS: ALBUMIN 3.1 g/dl (3.4-5.0); ANION GAP 5 mmol/L (4-13); BLOOD UREA NITROGEN 27.6 mg/dL (7-18); CO2 25 mmol/L (21-32); GLUCOSE,RANDOM 83 mg/dL (74-106)
[2023-03-12 11:42] LABS: CREATININE 0.6 mg/dL (0.55-1.3); SGOT/AST 17 U/L (15-37); SGPT/ALT 23 U/L (13-61)
[2023-03-12 11:43] LABS: TOT PROT 6.3 g/dl (6.4-8.2)
[2023-03-12 11:44] LABS: BILIRUBIN,TOTAL < 0.1 mg/dL (0.2-1)
[2023-03-12 11:45] LABS: ALK PHOS 75 U/L (45-117)
[2023-03-12 11:52] LABS: HEMATOCRIT 30.5 % (35.4-49); HEMOGLOBIN 9.6 GM/dL (11.7-16.9); MCH 22.9 pg (25.7-33.7); MCHC 31.4 g/dl (32.0-35.9); MEAN CELL VOLUME 73.1 fl (80-96); MEAN PLT VOLUME 8.9 fl (7.5-11.1); PLATELET COUNT 152 10^3/uL (134-434); RBC 4.17 M/mm3 (4.00-5.60); RDW 18.9 % (11.9-15.9); WHITE BLOOD COUNT 5.5 K/mm3 (4.0-10.0)
[2023-03-12] MEDS ORDERED: FLU VACCINE (FLULAVAL) PF 60 MCG/0.5 ML SYRINGE 2023-2024 IM ONE (12:00)
[2023-03-12 16:49] VITALS: BP 122/70; PULSE 78; RESP 16; TEMP 98
== END 2023-03-12 19:35 | disposition home or self-care (01) | DRG 773 ==
LOC: YASAS 18:42 → Y3N 22:27
PROVIDERS: ADMIT Allergy & Immunology; ATTEND Surgery
PROC: HZ2ZZZZ Detoxification Services for Substance Abuse Treatment (ICD-10-PCS; principal; 2023-03-11)
DX: F11.20 Opioid dependence, uncomplicated (principal); F10.20 Alcohol dependence, uncomplicated; F14.20 Cocaine dependence, uncomplicated; F17.210 Nicotine dependence, cigarettes, uncomplicated; F31.9 Bipolar disorder, unspecified; F19.24 Other psychoactive substance dependence with psychoactive substance-induced mood disorder; I25.10 Atherosclerotic heart disease of native coronary artery without angina pectoris; I50.9 Heart failure, unspecified; I25.2 Old myocardial infarction; Z95.5 Presence of coronary angioplasty implant and graft; Z99.89 Dependence on other enabling machines and devices; Z86.19 Personal history of other infectious and parasitic diseases; Z86.11 Personal history of tuberculosis; Z88.0 Allergy status to penicillin; Z88.8 Allergy status to other drugs, medicaments and biological substances; Z59.01 Sheltered homelessness
CPT/HCPCS: 36415; 80053; 80307; 85027; 86593; 86780; 87635; 90686; 93005; 93010; G0008